=== PATIENT | female | born 1985 | race Two or more races ===

== ENCOUNTER → 2018-08-24 | Outpatient (CLI) | payer OTHER ==
[~2018-08-24] MED LIST: IOPAMIDOL (ISOVUE-300) 100 ML BTL ONE
== END ==
LOC: CIMAGING 09:56
PROVIDERS: ATTEND Internal Medicine Hematology & Oncology
DX: M54.16 Radiculopathy, lumbar region (principal)
CPT/HCPCS: 71260-PO; Q9967